=== PATIENT | female | born 1955 | race African-American/Black ===

== ENCOUNTER 2017-08-28 01:37 | Emergency (ER) | payer SELFPAY ==
[~2017-08-28] VITALS: Ht 170.2 cm; Wt 91.0 kg
[2017-08-28 02:25] LABS: BASOPHILS % 0.5 % (0.0-2.0); EOSINOPHILS % 2.8 % (0.0-5.0); HEMATOCRIT. 40.7 % (36.0-48.0); HEMOGLOBIN. 13.4 g/dL (12.0-16.0); LYMPHOCYTES % 23.6 % (20.0-50.0); MEAN CORPUSCULAR HEMOGLOBIN 28.3 pg (28.0-32.0); MEAN CORPUSCULAR VOLUME 85.9 fL (81.0-99.0); MEAN PLATELET VOLUME 8.9 fl (7.4-10.4); MONOCYTES % 8.8 % (2.0-8.0); NEUTROPHILS % 64.3 % (40.0-76.0); PLATELET 165 x1000/uL (130-400); RED BLOOD CELL COUNT 4.74 mill/uL (4.2-5.4); RED CELL DISTRIBUTION WIDTH 14.2 % (11.6-14.6)
[2017-08-28 02:28] LABS: CHLORIDE 106 mEq/L (98-107)
[2017-08-28 02:37] LABS: CARBON DIOXIDE 30 mEq/L (21-32); ETHANOL BLOOD < 10 mg/dL
[2017-08-28] MEDS ORDERED: OLANZAPINE 2.5MG TABLET PO SCH (05:45)
[2017-08-28 07:26] LABS: CLARITY URINE CLEAR (CLEAR); COLOR URINE YELLOW (YELLOW); GLUCOSE URINE NEGATIVE (NEGATIVE); KETONES URINE NEGATIVE (NEGATIVE); LEUKOCYTE ESTERASE URINE TRACE (NEGATIVE); NITRITE URINE NEGATIVE (NEGATIVE); OCCULT BLOOD URINE NEGATIVE (NEGATIVE); PROTEIN URINE NEGATIVE (NEGATIVE); SPECIFIC GRAVITY URINE 1.015 (1.005-1.030); UROBILINOGEN URINE 0.2 E.U./dL (0.2-1.0)
[2017-08-28 07:41] LABS: *AMPHETAMINES SCREEN URINE NEGATIVE (NEGATIVE); *BARBITURATES SCREEN URINE NEGATIVE (NEGATIVE); *BENZODIAZEPINES SCREEN URINE NEGATIVE (NEGATIVE); *COCAINE SCREEN URINE NEGATIVE (NEGATIVE); CANNABINOID URINE SCREEN NEGATIVE (NEGATIVE); METHADONE URINE SCREEN NEGATIVE (NEGATIVE); OPIATES URINE SCREEN NEGATIVE (NEGATIVE); PHENCYCLIDINE URINE SCREEN NEGATIVE (NEGATIVE)
[2017-08-28 16:45] VITALS: BP 152/79
== END 2017-08-28 18:45 | disposition left against medical advice (07) ==
LOC: ER 01:44
DX: T43.621A Poisoning by amphetamines, accidental (unintentional), initial encounter (principal); F23 Brief psychotic disorder; R44.1 Visual hallucinations; I10 Essential (primary) hypertension; R45.851 Suicidal ideations; Y92.018 Other place in single-family (private) house as the place of occurrence of the external cause
CPT/HCPCS: 36415; 70450; 80053; 80305; 80307; 80329; 81001; 82962; 85025; 93005; 99285; G0482; Z7610

== ENCOUNTER 2018-04-15 14:45 | Inpatient (IN) | payer MEDICARE, MEDICAID ==
[~2018-04-15] VITALS: Ht 167.6 cm; Wt 96.2 kg
[~2018-04-15 14:45] MED LIST: ASPI-1159 PO; ATOR-2 PO; HYDR-4134 PO; LEVO25TA7 PO; LOSA50TA20 PO; METF500T6 PO; OLAN2.5T29 PO
[2018-04-15 15:00] VITALS: BP 164/84
[2018-04-15] MEDS ORDERED: MAGNESIUM/ALUMINUM HYDROXIDE/SIMETHICONE 30ML UDC PO PRN (16:00)
[2018-04-15] MEDS ORDERED: ACETAMINOPHEN 650MG SUPP PR PRN (16:00)
[2018-04-15] MEDS ORDERED: DIPHENHYDRAMINE 50MG/ML VIAL IV PRN (16:00)
[2018-04-15] MEDS ORDERED: IPRATROPIUM/ALBUTEROL 0.5-3(2.5)MG/3ML NEB INH PRN (16:00)
[2018-04-15] MEDS ORDERED: HYDROCODONE/ACETAMINOPHEN 5/325MG TABLET PO PRN (16:00)
[2018-04-15] MEDS ORDERED: MEDICATION NOT ON FORMULARY EA (Atorvastatin Calcium 1 TAB) PO SCH (16:00)
[2018-04-15] MEDS ORDERED: MEDICATION NOT ON FORMULARY EA (Aspirin (Aspirin Low Dose) 1 TAB) PO SCH (16:00)
[2018-04-15] MEDS ORDERED: ONDANSETRON HCL 4MG/2ML VIAL IV PRN (16:00)
[2018-04-15] MEDS ORDERED: GUAIFENESIN 200MG/10ML SUGAR FREE UDC PO PRN (16:00)
[2018-04-15] MEDS ORDERED: DOCUSATE SODIUM 100MG CAPSULE PO PRN (16:00)
[2018-04-15] MEDS ORDERED: NA PHOS,M-B/NA PHOS,DI-BA ENEMA 118ML PR PRN (16:00)
[2018-04-15] MEDS ORDERED: DEXTROSE 50% WATER 50ML SYRINGE IV PRN (16:30)
[2018-04-15] MEDS ORDERED: ONDANSETRON HCL 4MG TABLET PO PRN (16:30)
[2018-04-15] MEDS ORDERED: DIPHENHYDRAMINE 12.5MG/5ML UDC PO PRN (16:30)
[2018-04-15] MEDS ORDERED: MEDICATION NOT ON FORMULARY EA (Hydralazine Hcl 1 TAB) PO SCH (17:00)
[2018-04-15] MEDS ORDERED: MEDICATION NOT ON FORMULARY EA (Metformin Hcl 1 TAB) PO SCH (17:00)
[2018-04-15] MEDS: BLOOD SUGAR DIAGNOSTIC STRIP TEST SCH ×2 (17:00→21:00)
[2018-04-15] MEDS ORDERED: LORAZEPAM 2MG/ML CPJ IV PRN (17:15)
[2018-04-15] MEDS: METFORMIN HCL 500MG TABLET PO SCH (17:18)
[2018-04-15] MEDS: CLONIDINE 0.1MG TABLET PO PRN (17:18)
[2018-04-15] MEDS: ALPRAZOLAM 0.5 MG TABLET PO PRN (17:54)
[2018-04-15 20:00] VITALS: BP 137/74
[2018-04-15] MEDS: OLANZAPINE 2.5MG TABLET PO SCH ×2 (21:00→22:32)
[2018-04-15] MEDS ORDERED: MEDICATION NOT ON FORMULARY EA (Olanzapine 1 TAB) PO SCH (21:00)
[2018-04-15] MEDS: INSULIN LISPRO 100 UNITS/ML SUBCUT SCH ×2 (21:00→21:14)
[2018-04-15] MEDS: ATORVASTATIN CALCIUM 40MG TABLET PO SCH ×2 (21:00→22:31)
[2018-04-15] MEDS: HYDRALAZINE HCL 25MG TABLET PO SCH ×2 (22:00→22:33)
[2018-04-15] MEDS: SODIUM CHLORIDE 0.9% INJ 3ML FLUSH IVF SCH (22:00)
[2018-04-15] MEDS: ENOXAPARIN 30MG/0.3ML SYR SUBCUT SCH (22:32)
[2018-04-16 01:00] VITALS: BP 117/70
[2018-04-16 03:10] VITALS: BP 111/66
[2018-04-16] MEDS: SODIUM CHLORIDE 0.9% INJ 3ML FLUSH IVF SCH ×4 (06:00→22:00)
[2018-04-16] MEDS: LEVOTHYROXINE SODIUM 25MCG TABLET PO SCH (06:42)
[2018-04-16] MEDS: INSULIN LISPRO 100 UNITS/ML SUBCUT SCH ×4 (06:43→21:00)
[2018-04-16] MEDS: BLOOD SUGAR DIAGNOSTIC STRIP TEST SCH ×4 (06:43→21:00)
[2018-04-16] MEDS: HYDRALAZINE HCL 25MG TABLET PO SCH ×3 (06:43→22:39)
[2018-04-16 08:00] VITALS: BP 115/59
[2018-04-16] MEDS ORDERED: MEDICATION NOT ON FORMULARY EA (Losartan Potassium 1 TAB) PO SCH (09:00)
[2018-04-16] MEDS ORDERED: MEDICATION NOT ON FORMULARY EA (Levothyroxine Sodium 1 TAB) PO SCH (09:00)
[2018-04-16] MEDS: METFORMIN HCL 500MG TABLET PO SCH ×2 (09:39→18:52)
[2018-04-16] MEDS: ASPIRIN 81MG EC TABLET PO SCH (09:39)
[2018-04-16] MEDS: LOSARTAN POTASSIUM 50 MG TABLET PO SCH (09:39)
[2018-04-16] MEDS: DOCUSATE SODIUM 100MG CAPSULE PO SCH ×2 (09:40→18:52)
[2018-04-16] MEDS: ENOXAPARIN 30MG/0.3ML SYR SUBCUT SCH ×2 (09:41→22:30)
[2018-04-16 20:00] VITALS: BP 150/66
[2018-04-16] MEDS: ATORVASTATIN CALCIUM 40MG TABLET PO SCH (22:39)
[2018-04-16] MEDS: OLANZAPINE 2.5MG TABLET PO SCH (22:39)
[2018-04-17] MEDS: SODIUM CHLORIDE 0.9% INJ 3ML FLUSH IVF SCH ×3 (06:00→22:00)
[2018-04-17] MEDS: BLOOD SUGAR DIAGNOSTIC STRIP TEST SCH ×4 (06:30→21:37)
[2018-04-17] MEDS: LEVOTHYROXINE SODIUM 25MCG TABLET PO SCH (06:40)
[2018-04-17] MEDS: HYDRALAZINE HCL 25MG TABLET PO SCH ×3 (06:40→21:34)
[2018-04-17 08:00] VITALS: BP 158/75
[2018-04-17] MEDS: INSULIN LISPRO 100 UNITS/ML SUBCUT SCH ×4 (09:00→21:00)
[2018-04-17] MEDS: ASPIRIN 81MG EC TABLET PO SCH (09:14)
[2018-04-17] MEDS: METFORMIN HCL 500MG TABLET PO SCH ×2 (09:14→16:50)
[2018-04-17] MEDS: DOCUSATE SODIUM 100MG CAPSULE PO SCH ×2 (09:14→16:50)
[2018-04-17] MEDS: LOSARTAN POTASSIUM 50 MG TABLET PO SCH (09:14)
[2018-04-17] MEDS: ENOXAPARIN 30MG/0.3ML SYR SUBCUT SCH ×2 (09:20→21:34)
[2018-04-17 20:00] VITALS: BP 127/58
[2018-04-17] MEDS: ATORVASTATIN CALCIUM 40MG TABLET PO SCH (21:34)
[2018-04-17] MEDS: OLANZAPINE 2.5MG TABLET PO SCH (21:34)
[2018-04-17] MEDS: ACETAMINOPHEN 325MG TABLET PO PRN (23:55)
[2018-04-17] MEDS: ALPRAZOLAM 0.5 MG TABLET PO PRN (23:55)
[2018-04-18] MEDS: HYDRALAZINE HCL 25MG TABLET PO SCH ×3 (05:35→21:36)
[2018-04-18] MEDS: LEVOTHYROXINE SODIUM 25MCG TABLET PO SCH (05:35)
[2018-04-18] MEDS: BLOOD SUGAR DIAGNOSTIC STRIP TEST SCH ×4 (06:25→21:45)
[2018-04-18] MEDS: SODIUM CHLORIDE 0.9% INJ 3ML FLUSH IVF SCH ×4 (06:25→21:29)
[2018-04-18 08:00] VITALS: BP 168/73
[2018-04-18] MEDS: DOCUSATE SODIUM 100MG CAPSULE PO SCH ×2 (08:46→19:02)
[2018-04-18] MEDS: LOSARTAN POTASSIUM 50 MG TABLET PO SCH (08:46)
[2018-04-18] MEDS: ASPIRIN 81MG EC TABLET PO SCH (08:46)
[2018-04-18] MEDS: METFORMIN HCL 500MG TABLET PO SCH ×2 (08:46→19:02)
[2018-04-18] MEDS: ENOXAPARIN 30MG/0.3ML SYR SUBCUT SCH ×2 (08:47→21:36)
[2018-04-18] MEDS: INSULIN LISPRO 100 UNITS/ML SUBCUT SCH ×4 (09:10→21:45)
[2018-04-18] MEDS: ACETAMINOPHEN 325MG TABLET PO PRN (13:42)
[2018-04-18] MEDS: CLONIDINE 0.1MG TABLET PO PRN (19:58)
[2018-04-18 20:08] VITALS: BP 163/88
[2018-04-18 21:00] VITALS: BP 147/78
[2018-04-18] MEDS: ATORVASTATIN CALCIUM 40MG TABLET PO SCH (21:36)
[2018-04-18] MEDS: OLANZAPINE 2.5MG TABLET PO SCH (21:38)
[2018-04-19] MEDS: HYDRALAZINE HCL 25MG TABLET PO SCH ×3 (05:37→21:30)
[2018-04-19] MEDS: LEVOTHYROXINE SODIUM 25MCG TABLET PO SCH (05:37)
[2018-04-19] MEDS: SODIUM CHLORIDE 0.9% INJ 3ML FLUSH IVF SCH ×3 (05:38→21:22)
[2018-04-19] MEDS: BLOOD SUGAR DIAGNOSTIC STRIP TEST SCH ×4 (05:38→21:22)
[2018-04-19 08:00] VITALS: BP 117/57
[2018-04-19] MEDS: INSULIN LISPRO 100 UNITS/ML SUBCUT SCH ×4 (09:00→21:00)
[2018-04-19] MEDS: LOSARTAN POTASSIUM 50 MG TABLET PO SCH (10:11)
[2018-04-19] MEDS: DOCUSATE SODIUM 100MG CAPSULE PO SCH ×2 (10:11→18:21)
[2018-04-19] MEDS: METFORMIN HCL 500MG TABLET PO SCH ×2 (10:11→18:21)
[2018-04-19] MEDS: ENOXAPARIN 30MG/0.3ML SYR SUBCUT SCH ×2 (10:12→20:30)
[2018-04-19] MEDS: ASPIRIN 81MG EC TABLET PO SCH (10:15)
[2018-04-19] MEDS: ACETAMINOPHEN 650MG/20.3ML UDC GT PRN ×2 (10:21→14:05)
[2018-04-19 20:00] VITALS: BP 169/55
[2018-04-19] MEDS: OLANZAPINE 2.5MG TABLET PO SCH (20:30)
[2018-04-19] MEDS: ATORVASTATIN CALCIUM 40MG TABLET PO SCH (20:30)
[2018-04-19] MEDS: CLONIDINE 0.1MG TABLET PO PRN (20:31)
[2018-04-19] MEDS: ACETAMINOPHEN 325MG TABLET PO PRN (20:31)
[2018-04-19 21:30] VITALS: BP 140/71
[2018-04-20] MEDS: HYDRALAZINE HCL 25MG TABLET PO SCH ×2 (05:41→13:56)
[2018-04-20] MEDS: SODIUM CHLORIDE 0.9% INJ 3ML FLUSH IVF SCH ×3 (05:41→22:00)
[2018-04-20] MEDS: LEVOTHYROXINE SODIUM 25MCG TABLET PO SCH (06:25)
[2018-04-20] MEDS: BLOOD SUGAR DIAGNOSTIC STRIP TEST SCH ×4 (06:25→21:00)
[2018-04-20] MEDS: INSULIN LISPRO 100 UNITS/ML SUBCUT SCH ×4 (06:41→21:00)
[2018-04-20] MEDS: ACETAMINOPHEN 325MG TABLET PO PRN (07:54)
[2018-04-20 07:58] VITALS: BP 146/68
[2018-04-20 08:00] VITALS: BP 144/74
[2018-04-20] MEDS: DOCUSATE SODIUM 100MG CAPSULE PO SCH ×3 (09:51→18:22)
[2018-04-20] MEDS: ENOXAPARIN 30MG/0.3ML SYR SUBCUT SCH ×2 (09:51→21:00)
[2018-04-20] MEDS: ASPIRIN 81MG EC TABLET PO SCH (09:51)
[2018-04-20] MEDS: LOSARTAN POTASSIUM 50 MG TABLET PO SCH (09:52)
[2018-04-20] MEDS: METFORMIN HCL 500MG TABLET PO SCH ×2 (09:52→18:22)
[2018-04-20 20:00] VITALS: BP 140/77
[2018-04-21] MEDS: HYDRALAZINE HCL 25MG TABLET PO SCH ×4 (00:01→22:35)
[2018-04-21] MEDS: OLANZAPINE 2.5MG TABLET PO SCH ×2 (00:02→21:00)
[2018-04-21] MEDS: ATORVASTATIN CALCIUM 40MG TABLET PO SCH ×2 (00:02→21:00)
[2018-04-21 06:37] LABS: BASOPHILS % 0.3 % (0.0-2.0); EOSINOPHILS % 5.9 % (0.0-5.0); HEMATOCRIT. 37.5 % (36.0-48.0); HEMOGLOBIN. 12.4 g/dL (12.0-16.0); LYMPHOCYTES % 48.5 % (20.0-50.0); MEAN CORPUSCULAR HEMOGLOBIN 28.5 pg (28.0-32.0); MEAN CORPUSCULAR VOLUME 86.3 fL (81.0-99.0); MEAN PLATELET VOLUME 9.3 fl (7.4-10.4); MONOCYTES % 10.5 % (2.0-8.0); NEUTROPHILS % 34.8 % (40.0-76.0); PLATELET 162 x1000/uL (130-400); RED BLOOD CELL COUNT 4.35 mill/uL (4.2-5.4); RED CELL DISTRIBUTION WIDTH 14.5 % (11.6-14.6)
[2018-04-21] MEDS: SODIUM CHLORIDE 0.9% INJ 3ML FLUSH IVF SCH ×3 (06:59→22:34)
[2018-04-21] MEDS: BLOOD SUGAR DIAGNOSTIC STRIP TEST SCH ×4 (07:00→21:00)
[2018-04-21] MEDS: LEVOTHYROXINE SODIUM 25MCG TABLET PO SCH (07:01)
[2018-04-21 08:00] VITALS: BP 139/91
[2018-04-21 08:09] LABS: CHLORIDE 112 mEq/L (98-107)
[2018-04-21] MEDS: INSULIN LISPRO 100 UNITS/ML SUBCUT SCH ×4 (09:00→21:00)
[2018-04-21] MEDS: ENOXAPARIN 30MG/0.3ML SYR SUBCUT SCH ×2 (09:14→22:32)
[2018-04-21] MEDS: LOSARTAN POTASSIUM 50 MG TABLET PO SCH (09:15)
[2018-04-21] MEDS: ASPIRIN 81MG EC TABLET PO SCH (09:15)
[2018-04-21] MEDS: DOCUSATE SODIUM 100MG CAPSULE PO SCH ×2 (09:15→17:35)
[2018-04-21] MEDS: METFORMIN HCL 500MG TABLET PO SCH ×2 (09:15→17:35)
[2018-04-21] MEDS: ACETAMINOPHEN 650MG/20.3ML UDC GT PRN (09:53)
[2018-04-21 20:00] VITALS: BP 147/77
[2018-04-22] MEDS: LEVOTHYROXINE SODIUM 25MCG TABLET PO SCH (05:57)
[2018-04-22] MEDS: HYDRALAZINE HCL 25MG TABLET PO SCH ×2 (05:58→14:30)
[2018-04-22] MEDS: SODIUM CHLORIDE 0.9% INJ 3ML FLUSH IVF SCH ×2 (06:55→14:00)
[2018-04-22] MEDS: BLOOD SUGAR DIAGNOSTIC STRIP TEST SCH ×2 (06:55→11:22)
[2018-04-22 08:00] VITALS: BP 177/81
[2018-04-22] MEDS: ASPIRIN 81MG EC TABLET PO SCH (08:25)
[2018-04-22] MEDS: METFORMIN HCL 500MG TABLET PO SCH (08:25)
[2018-04-22] MEDS: DOCUSATE SODIUM 100MG CAPSULE PO SCH (08:25)
[2018-04-22] MEDS: ENOXAPARIN 30MG/0.3ML SYR SUBCUT SCH (08:26)
[2018-04-22] MEDS: LOSARTAN POTASSIUM 50 MG TABLET PO SCH (08:28)
[2018-04-22] MEDS: INSULIN LISPRO 100 UNITS/ML SUBCUT SCH ×2 (09:00→13:00)
[2018-04-22 10:09] VITALS: BP 130/68
[2018-04-22] MEDS: ACETAMINOPHEN 650MG/20.3ML UDC GT PRN (12:39)
== END 2018-04-22 15:10 | disposition home or self-care (01) | DRG 64 ==
PROVIDERS: ADMIT Psychiatry & Neurology Neurology; ATTEND Family Medicine
PROC: 5A09357 Assistance with Respiratory Ventilation, Less than 24 Consecutive Hours, Continuous Positive Airway Pressure (ICD-10-PCS; principal; 2018-04-15)
PROC: 5A09357 Assistance with Respiratory Ventilation, Less than 24 Consecutive Hours, Continuous Positive Airway Pressure (ICD-10-PCS; 2018-04-16)
PROC: 5A09357 Assistance with Respiratory Ventilation, Less than 24 Consecutive Hours, Continuous Positive Airway Pressure (ICD-10-PCS; 2018-04-17)
PROC: 5A09357 Assistance with Respiratory Ventilation, Less than 24 Consecutive Hours, Continuous Positive Airway Pressure (ICD-10-PCS; 2018-04-18)
PROC: 5A09357 Assistance with Respiratory Ventilation, Less than 24 Consecutive Hours, Continuous Positive Airway Pressure (ICD-10-PCS; 2018-04-21)
PROC: 5A09357 Assistance with Respiratory Ventilation, Less than 24 Consecutive Hours, Continuous Positive Airway Pressure (ICD-10-PCS; 2018-04-22)
DX: I63.9 Cerebral infarction, unspecified (principal); G93.40 Encephalopathy, unspecified; E87.0 Hyperosmolality and hypernatremia; G81.94 Hemiplegia, unspecified affecting left nondominant side; I10 Essential (primary) hypertension; G47.30 Sleep apnea, unspecified; R00.1 Bradycardia, unspecified; K59.00 Constipation, unspecified; F41.8 Other specified anxiety disorders; E78.5 Hyperlipidemia, unspecified; E11.9 Type 2 diabetes mellitus without complications; E66.9 Obesity, unspecified; R82.90 Unspecified abnormal findings in urine; E03.9 Hypothyroidism, unspecified; R62.7 Adult failure to thrive; R26.9 Unspecified abnormalities of gait and mobility; R47.1 Dysarthria and anarthria; F32.9 Major depressive disorder, single episode, unspecified; F41.9 Anxiety disorder, unspecified; F22 Delusional disorders; Z68.34 Body mass index [BMI] 34.0-34.9, adult; Z79.82 Long term (current) use of aspirin; Z79.84 Long term (current) use of oral hypoglycemic drugs
CPT/HCPCS: 36415; 80048; 82962; 85025; 92523; 92610; 94660; 97110; 97116; 97162; 97167; 97530; 97535; A6261; G0515; J1650; J1815; J2060

== ENCOUNTER 2019-09-24 17:15 | Emergency (ER) | payer MEDICARE, MEDICAID ==
[~2019-09-24] VITALS: Ht 162.6 cm; Wt 82.0 kg
[~2019-09-24 17:15] MED LIST changes: -ASPI-1159 PO; +ASPI-1393 PO; -LOSA50TA20 PO; +METF-414 PO; -METF500T6 PO
[2019-09-24 17:39] VITALS: BP 169/95
== END 2019-09-24 21:30 | disposition left against medical advice (07) ==
LOC: ER 17:15
DX: Z53.21 Procedure and treatment not carried out due to patient leaving prior to being seen by health care provider (principal)

== ENCOUNTER 2022-06-15 16:20 | Inpatient (IN) | payer MEDICARE, MEDICAID ==
[~2022-06-15] VITALS: Ht 170.2 cm; Wt 83.0 kg
[~2022-06-15 16:20] MED LIST changes: -ASPI-1393 PO; +ASPI-1497 PO
[2022-06-15] MEDS ORDERED: PIPERACILLIN/TAZ 3.375G PREMIX 50 ML IV ONE (16:30)
[2022-06-15] MEDS ORDERED: SODIUM CHLORIDE 0.9% 1000ML BAG (SEPSIS BOLUS) IV ONE (16:30)
[2022-06-15] MEDS ORDERED: VANCOMYCIN 1G PREMIX 200 ML IV ONE (16:30)
[2022-06-15] MEDS ORDERED: ACETAMINOPHEN 650MG SUPP PR ONE (16:45)
[2022-06-15 16:47] LABS: BG BASE EXCESS 0.9 mmol/L (-2.0-2.0); BG CARBOXYHEMOGLOBIN 0.3 % (0.5-1.5); BG HCO3 ACT 23.6 mmol/L (22.0-26.0); BG METHEMOGLOBIN 0.4 % (0.0-1.5); BG OXYHEMOGLOBIN 98.3 % (94.0-97.0); BG PCO2 32.7 mmHg (35.0-45.0); BG PH 7.477 (7.350-7.450); BG PO2 206.6 mmHg (75.0-100.0); BG SAMPLE SITE RIGHT BRACHIAL; BG TOTAL HEMOGLOBIN 15.3 g/dL (12.0-18.0); BG VENT MODE MASK - NRB
[2022-06-15 17:16] LABS: CHLORIDE 136 mEq/L (98-107)
[2022-06-15 17:21] LABS: INR 1.2; PROTHROMBIN TIME 12.8 sec (9.6-11.0)
[2022-06-15 17:37] LABS: CLARITY URINE CLEAR (CLEAR); COLOR URINE YELLOW (YELLOW); KETONES URINE TRACE (NEGATIVE); LEUKOCYTE ESTERASE URINE NEGATIVE (NEGATIVE); NITRITE URINE NEGATIVE (NEGATIVE); OCCULT BLOOD URINE NEGATIVE (NEGATIVE); PH URINE 5.5 (4.5-8.0); PROTEIN URINE 2+ (NEGATIVE)
[2022-06-15 17:48] LABS: BETA HYDROXYBUTYRATE 0.3 mMol/L (0.0-0.3)
[2022-06-15 17:51] LABS: BG BASE EXCESS -2.1 mmol/L (-2.0-2.0); BG DEOXYHEMOGLOBIN 4.8 % (0.0-5.0); BG FRACTION INSPIRED OXYGEN 28; BG HCO3 ACT 21.8 mmol/L (22.0-26.0); BG METHEMOGLOBIN 0.3 % (0.0-1.5); BG OXYGEN SATURATION 95.2 % (92.0-98.5); BG OXYHEMOGLOBIN 94.9 % (94.0-97.0); BG PH 7.413 (7.350-7.450); BG PO2 84.4 mmHg (75.0-100.0); BG SAMPLE SITE LEFT RADIAL; BG TOTAL HEMOGLOBIN 13.3 g/dL (12.0-18.0); BG VENT MODE NASAL CANNULA
[2022-06-15] MEDS ORDERED: ASPIRIN 300MG SUPP PR ONE (18:45)
[2022-06-15 19:00] LABS: BASOPHILS % 0.1 % (0.0-2.0); EOSINOPHILS % 0.1 % (0.0-5.0); HEMATOCRIT. 39.8 % (36.0-48.0); HEMOGLOBIN. 12.7 g/dL (12.0-16.0); LYMPHOCYTES % 7.9 % (20.0-50.0); MEAN CORPUSCULAR HEMOGLOBIN 28.7 pg (28.0-32.0); MEAN CORPUSCULAR VOLUME 89.7 fL (81.0-99.0); MONOCYTES % 6.9 % (2.0-8.0); RED BLOOD CELL COUNT 4.43 mill/uL (4.2-5.4); RED CELL DISTRIBUTION WIDTH 13.7 % (11.6-14.6)
[2022-06-15] MEDS ORDERED: INSULIN REGULAR (HUMULIN R) UD 100 UNITS/ML SYR SUBCUT ONE (19:00)
[2022-06-15] MEDS ORDERED: INSULIN REGULAR (HUMULIN R) 300UNITS/3ML VIAL SUBCUT NR ×2 (20:15→23:45)
[2022-06-15] MEDS ORDERED: ASPIRIN 300MG SUPP PR NR (20:15)
[2022-06-15] MEDS ORDERED: SODIUM CHLORIDE 0.45% 1,000 ML IV SCH (21:45)
[2022-06-15] MEDS ORDERED: INSULIN REGULAR (HUMULIN R) 300UNITS/3ML VIAL IV NR (21:45)
[2022-06-16] MEDS ORDERED: DEXTROSE 50% WATER 50ML SYRINGE IV PRN (00:15)
[2022-06-16] MEDS ORDERED: SODIUM CHL 0.45% + KCL 20MEQ/L 1,000 ML IV SCH (00:15)
[2022-06-16] MEDS: SODIUM CHL 0.45% + KCL 20MEQ/L 1,000 ML IV SCH ×3 (01:00→22:51)
[2022-06-16] MEDS ORDERED: HYDRALAZINE 20MG/ML VIAL IV PRN (01:30)
[2022-06-16] MEDS ORDERED: ACETAMINOPHEN 650MG SUPP PR PRN (01:30)
[2022-06-16 03:24] LABS: BASOPHILS % 0.9 % (0.0-2.0); EOSINOPHILS % 0.1 % (0.0-5.0); HEMATOCRIT. 42.5 % (36.0-48.0); HEMOGLOBIN. 13.4 g/dL (12.0-16.0); LYMPHOCYTES % 11.4 % (20.0-50.0); MEAN CORPUSCULAR HEMOGLOBIN 28.3 pg (28.0-32.0); MEAN CORPUSCULAR VOLUME 89.9 fL (81.0-99.0); MEAN PLATELET VOLUME 11.2 fl (7.4-10.4); MONOCYTES % 5.9 % (2.0-8.0); NEUTROPHILS % 81.7 % (40.0-76.0); RED BLOOD CELL COUNT 4.73 mill/uL (4.2-5.4); RED CELL DISTRIBUTION WIDTH 14.1 % (11.6-14.6)
[2022-06-16 03:31] LABS: CHLORIDE 138 mEq/L (98-107)
[2022-06-16 03:33] LABS: PLATELET 28 x1000/uL (130-400)
[2022-06-16 03:39] LABS: T4 FREE 0.85 ng/dL (0.76-1.46)
[2022-06-16] MEDS: BLOOD SUGAR DIAGNOSTIC STRIP TEST SCH ×5 (06:09→17:30)
[2022-06-16] MEDS: PIPERACILLIN/TAZOBACTAM 3.375 G in DEXTROSE 5% WATER 50 ML IV SCH (06:21)
[2022-06-16] MEDS: INSULIN LISPRO 100 UNITS/ML SUBCUT SCH ×4 (06:28→22:58)
[2022-06-16] MEDS: INSULIN GLARGINE 100 UNITS/ML SUBCUT SCH (08:00)
[2022-06-16] MEDS ORDERED: HYDRALAZINE HCL 25MG TABLET PO SCH (09:00)
[2022-06-16] MEDS ORDERED: LEVOTHYROXINE SODIUM 25MCG TABLET PO SCH (09:00)
[2022-06-16] MEDS ORDERED: ASPIRIN 81MG EC TABLET PO SCH (09:00)
[2022-06-16] MEDS: FAMOTIDINE 20MG/2ML VIAL IV SCH (09:26)
[2022-06-16 09:38] LABS: CHLORIDE 137 mEq/L (98-107)
[2022-06-16 09:43] LABS: CREATINE KINASE 370 IU/L (26-192); CREATINE KINASE MB FRACTION 4.9 ng/mL (0.5-3.6); T4 FREE 0.89 ng/dL (0.76-1.46)
[2022-06-16] MEDS ORDERED: SODIUM CHLORIDE 0.45% 500 ML IV ONE (10:45)
[2022-06-16 15:46] LABS: CHLORIDE 134 mEq/L (98-107)
[2022-06-16 15:58] LABS: CREATINE KINASE 580 IU/L (26-192); CREATINE KINASE MB FRACTION 6.6 ng/mL (0.5-3.6)
[2022-06-16 18:00] VITALS: BP 115/70
[2022-06-16 18:03] VITALS: BP 121/74
[2022-06-16 19:34] LABS: CREATINE KINASE MB FRACTION 6.3 ng/mL (0.5-3.6)
[2022-06-16 20:00] VITALS: BP 117/76
[2022-06-16] MEDS ORDERED: OLANZAPINE 2.5MG TABLET PO SCH (21:00)
[2022-06-16 21:38] LABS: CHLORIDE 140 mEq/L (98-107)
[2022-06-16 22:00] VITALS: BP 134/78
[2022-06-16] MEDS ORDERED: INSULIN GLARGINE 100 UNITS/ML SUBCUT SCH (22:00)
[2022-06-17] VITALS (15 sets, daily range): BP systolic 112–151; BP diastolic 63–77
[2022-06-17 03:02] LABS: CHLORIDE 140 mEq/L (98-107)
[2022-06-17 04:33] LABS: BASOPHILS % 0.2 % (0.0-2.0); EOSINOPHILS % 1.8 % (0.0-5.0); HEMATOCRIT. 38.2 % (36.0-48.0); HEMOGLOBIN. 12.1 g/dL (12.0-16.0); LYMPHOCYTES % 12.6 % (20.0-50.0); MEAN CORPUSCULAR HEMOGLOBIN 28.4 pg (28.0-32.0); MEAN CORPUSCULAR VOLUME 89.7 fL (81.0-99.0); MEAN PLATELET VOLUME 12.2 fl (7.4-10.4); MONOCYTES % 4.6 % (2.0-8.0); NEUTROPHILS % 80.8 % (40.0-76.0); RED BLOOD CELL COUNT 4.26 mill/uL (4.2-5.4); RED CELL DISTRIBUTION WIDTH 14.1 % (11.6-14.6)
[2022-06-17 04:42] LABS: CHLORIDE 139 mEq/L (98-107)
[2022-06-17 05:25] LABS: PLATELET 28 x1000/uL (130-400)
[2022-06-17] MEDS: PIPERACILLIN/TAZOBACTAM 3.375 G in DEXTROSE 5% WATER 50 ML IV SCH ×4 (06:00→21:39)
[2022-06-17] MEDS: SODIUM CHL 0.45% + KCL 20MEQ/L 1,000 ML IV SCH (07:16)
[2022-06-17] MEDS: INSULIN LISPRO 100 UNITS/ML SUBCUT SCH ×4 (08:00→21:42)
[2022-06-17] MEDS: BLOOD SUGAR DIAGNOSTIC STRIP TEST SCH ×3 (09:49→21:39)
[2022-06-17] MEDS: FAMOTIDINE 20MG/2ML VIAL IV SCH (09:59)
[2022-06-17] MEDS: INSULIN GLARGINE 100 UNITS/ML SUBCUT SCH (10:00)
[2022-06-17] MEDS: DEXTROSE 5% WATER 1,000 ML IV SCH ×2 (11:18→21:39)
[2022-06-17 18:23] LABS: CHLORIDE 131 mEq/L (98-107)
[2022-06-18] VITALS (15 sets, daily range): BP systolic 102–140; BP diastolic 57–87
[2022-06-18] MEDS: PIPERACILLIN/TAZOBACTAM 3.375 G in DEXTROSE 5% WATER 50 ML IV SCH ×2 (05:40→14:25)
[2022-06-18 07:19] LABS: BASOPHILS % 0.3 % (0.0-2.0); CHLORIDE 126 mEq/L (98-107); HEMATOCRIT. 38.8 % (36.0-48.0); HEMOGLOBIN. 12.2 g/dL (12.0-16.0); LYMPHOCYTES % 20.6 % (20.0-50.0); MEAN CORPUSCULAR HEMOGLOBIN 28.8 pg (28.0-32.0); MEAN CORPUSCULAR VOLUME 91.3 fL (81.0-99.0); MEAN PLATELET VOLUME 12.8 fl (7.4-10.4); MONOCYTES % 8.2 % (2.0-8.0); NEUTROPHILS % 67.9 % (40.0-76.0); RED BLOOD CELL COUNT 4.25 mill/uL (4.2-5.4); RED CELL DISTRIBUTION WIDTH 13.8 % (11.6-14.6)
[2022-06-18] MEDS: DEXTROSE 5% WATER 1,000 ML IV SCH ×2 (07:19→17:00)
[2022-06-18] MEDS: BLOOD SUGAR DIAGNOSTIC STRIP TEST SCH ×4 (07:20→22:30)
[2022-06-18 07:31] LABS: PHOSPHORUS 3.1 mg/dL (2.5-4.9)
[2022-06-18 08:22] LABS: PLATELET 35 x1000/uL (130-400)
[2022-06-18] MEDS: INSULIN GLARGINE 100 UNITS/ML SUBCUT SCH (10:20)
[2022-06-18] MEDS: INSULIN LISPRO 100 UNITS/ML SUBCUT SCH ×4 (10:21→22:30)
[2022-06-18] MEDS: FAMOTIDINE 20MG/2ML VIAL IV SCH (10:21)
[2022-06-18 14:09] LABS: PLATELET 31 x1000/uL (130-400)
[2022-06-18] MEDS ORDERED: IPRATROPIUM/ALBUTEROL 0.5-3(2.5)MG/3ML NEB HHN PRN (22:45)
[2022-06-19] VITALS (12 sets, daily range): BP systolic 108–128; BP diastolic 54–74
[2022-06-19] MEDS: DEXTROSE 5% WATER 1,000 ML IV SCH ×3 (02:54→23:23)
[2022-06-19 06:22] LABS: BASOPHILS % 0.3 % (0.0-2.0); EOSINOPHILS % 2.9 % (0.0-5.0); HEMATOCRIT. 33.2 % (36.0-48.0); HEMOGLOBIN. 10.9 g/dL (12.0-16.0); LYMPHOCYTES % 23.7 % (20.0-50.0); MEAN CORPUSCULAR HEMOGLOBIN 29.3 pg (28.0-32.0); MEAN CORPUSCULAR VOLUME 88.9 fL (81.0-99.0); MONOCYTES % 7.6 % (2.0-8.0); NEUTROPHILS % 65.5 % (40.0-76.0); RED BLOOD CELL COUNT 3.73 mill/uL (4.2-5.4); RED CELL DISTRIBUTION WIDTH 13.3 % (11.6-14.6)
[2022-06-19 06:36] LABS: CHLORIDE 119 mEq/L (98-107)
[2022-06-19 06:42] LABS: PARTIAL THROMBOPLASTIN TIME 26.7 sec (23.4-31.0)
[2022-06-19 06:49] LABS: PHOSPHORUS 3.2 mg/dL (2.5-4.9)
[2022-06-19] MEDS: BLOOD SUGAR DIAGNOSTIC STRIP TEST SCH ×4 (07:30→21:00)
[2022-06-19 07:41] LABS: PLATELET 45 x1000/uL (130-400)
[2022-06-19 07:44] LABS: PLATELET ESTIMATE MARKEDLY DECREASED
[2022-06-19] MEDS: INSULIN LISPRO 100 UNITS/ML SUBCUT SCH ×7 (08:48→21:19)
[2022-06-19] MEDS: FISH OIL/OMEGA-3 FATTY ACIDS 1000MG CAPSULE PO SCH (08:48)
[2022-06-19] MEDS: FAMOTIDINE 20MG/2ML VIAL IV SCH (08:48)
[2022-06-19] MEDS ORDERED: INSULIN GLARGINE 100 UNITS/ML SUBCUT SCH (10:00)
[2022-06-19] MEDS ORDERED: POTASSIUM CHLORIDE 20MEQ/PACKET PO NR ×2 (12:30→16:00)
[2022-06-19] MEDS: ATORVASTATIN CALCIUM 40MG TABLET PO SCH (21:11)
[2022-06-20] VITALS (12 sets, daily range): BP systolic 107–165; BP diastolic 22–83
[2022-06-20 05:57] LABS: CHLORIDE 116 mEq/L (98-107)
[2022-06-20 06:22] LABS: BASOPHILS % 0.2 % (0.0-2.0); EOSINOPHILS % 2.1 % (0.0-5.0); HEMATOCRIT. 36.5 % (36.0-48.0); HEMOGLOBIN. 11.9 g/dL (12.0-16.0); LYMPHOCYTES % 16.3 % (20.0-50.0); MEAN CORPUSCULAR VOLUME 88.6 fL (81.0-99.0); MEAN PLATELET VOLUME 12.4 fl (7.4-10.4); MONOCYTES % 6.8 % (2.0-8.0); NEUTROPHILS % 74.6 % (40.0-76.0); PLATELET 67 x1000/uL (130-400); RED BLOOD CELL COUNT 4.12 mill/uL (4.2-5.4); RED CELL DISTRIBUTION WIDTH 13.4 % (11.6-14.6)
[2022-06-20] MEDS: BLOOD SUGAR DIAGNOSTIC STRIP TEST SCH ×4 (07:36→21:00)
[2022-06-20] MEDS: INSULIN LISPRO 100 UNITS/ML SUBCUT SCH ×7 (08:19→21:00)
[2022-06-20] MEDS: FISH OIL/OMEGA-3 FATTY ACIDS 1000MG CAPSULE PO SCH (09:58)
[2022-06-20] MEDS: FAMOTIDINE 20MG TABLET PO SCH (09:58)
[2022-06-20] MEDS: AMLODIPINE 5MG TABLET PO SCH (10:37)
[2022-06-20] MEDS: INSULIN GLARGINE 100 UNITS/ML SUBCUT SCH (10:57)
[2022-06-20] MEDS: POTASSIUM CHLORIDE 20MEQ TABLET SR PO SCH (12:45)
[2022-06-20] MEDS ORDERED: POTASSIUM CHLORIDE 20MEQ/PACKET PO SCH (13:15)
[2022-06-20] MEDS: DEXTROSE 5% WATER 1,000 ML IV SCH (14:10)
[2022-06-20] MEDS: ATORVASTATIN CALCIUM 40MG TABLET PO SCH (21:08)
[2022-06-21] VITALS (12 sets, daily range): BP systolic 112–152; BP diastolic 57–87
[2022-06-21] MEDS: DEXTROSE 5% WATER 1,000 ML IV SCH ×2 (02:01→11:56)
[2022-06-21 06:39] LABS: CHLORIDE 114 mEq/L (98-107)
[2022-06-21] MEDS: BLOOD SUGAR DIAGNOSTIC STRIP TEST SCH ×4 (06:51→20:54)
[2022-06-21] MEDS: FISH OIL/OMEGA-3 FATTY ACIDS 1000MG CAPSULE PO SCH (07:43)
[2022-06-21] MEDS: POTASSIUM CHLORIDE 20MEQ TABLET SR PO SCH (07:44)
[2022-06-21] MEDS: FAMOTIDINE 20MG TABLET PO SCH (07:44)
[2022-06-21] MEDS: AMLODIPINE 5MG TABLET PO SCH (07:44)
[2022-06-21] MEDS: INSULIN LISPRO 100 UNITS/ML SUBCUT SCH ×7 (07:45→20:53)
[2022-06-21] MEDS: INSULIN GLARGINE 100 UNITS/ML SUBCUT SCH (09:14)
[2022-06-21 10:23] LABS: BASOPHILS % 0.4 % (0.0-2.0); EOSINOPHILS % 2.1 % (0.0-5.0); HEMATOCRIT. 32.8 % (36.0-48.0); LYMPHOCYTES % 17.6 % (20.0-50.0); MEAN CORPUSCULAR HEMOGLOBIN 29.1 pg (28.0-32.0); MEAN CORPUSCULAR VOLUME 87.3 fL (81.0-99.0); MEAN PLATELET VOLUME 11.5 fl (7.4-10.4); MONOCYTES % 7.2 % (2.0-8.0); NEUTROPHILS % 72.7 % (40.0-76.0); PLATELET 89 x1000/uL (130-400); RED BLOOD CELL COUNT 3.76 mill/uL (4.2-5.4); RED CELL DISTRIBUTION WIDTH 13.1 % (11.6-14.6)
[2022-06-21] MEDS: ATORVASTATIN CALCIUM 40MG TABLET PO SCH (20:53)
[2022-06-22] VITALS (11 sets, daily range): BP systolic 106–163; BP diastolic 46–79
[2022-06-22] MEDS: DEXTROSE 5% WATER 1,000 ML IV SCH (05:08)
[2022-06-22 05:55] LABS: PARTIAL THROMBOPLASTIN TIME 28.3 sec (23.4-31.0); PROTHROMBIN TIME 10.7 sec (9.6-11.0)
[2022-06-22 06:24] LABS: CHLORIDE 113 mEq/L (98-107)
[2022-06-22 06:29] LABS: PHOSPHORUS 3.2 mg/dL (2.5-4.9)
[2022-06-22 06:48] LABS: BASOPHILS % 0.2 % (0.0-2.0); EOSINOPHILS % 1.8 % (0.0-5.0); HEMOGLOBIN. 11.3 g/dL (12.0-16.0); LYMPHOCYTES % 17.2 % (20.0-50.0); MEAN CORPUSCULAR VOLUME 86.9 fL (81.0-99.0); MEAN PLATELET VOLUME 11.2 fl (7.4-10.4); MONOCYTES % 10.2 % (2.0-8.0); NEUTROPHILS % 70.6 % (40.0-76.0); PLATELET 125 x1000/uL (130-400); RED BLOOD CELL COUNT 3.91 mill/uL (4.2-5.4); RED CELL DISTRIBUTION WIDTH 13.4 % (11.6-14.6)
[2022-06-22] MEDS: BLOOD SUGAR DIAGNOSTIC STRIP TEST SCH ×4 (07:30→21:16)
[2022-06-22] MEDS: INSULIN LISPRO 100 UNITS/ML SUBCUT SCH ×7 (07:30→21:00)
[2022-06-22] MEDS: AMLODIPINE 5MG TABLET PO SCH (09:08)
[2022-06-22] MEDS: FISH OIL/OMEGA-3 FATTY ACIDS 1000MG CAPSULE PO SCH (09:08)
[2022-06-22] MEDS: POTASSIUM CHLORIDE 20MEQ TABLET SR PO SCH (09:09)
[2022-06-22] MEDS: FAMOTIDINE 20MG TABLET PO SCH (09:09)
[2022-06-22] MEDS: INSULIN GLARGINE 100 UNITS/ML SUBCUT SCH (10:19)
[2022-06-22] MEDS: APIXABAN 5 MG TABLET PO SCH ×2 (13:07→17:05)
[2022-06-22] MEDS ORDERED: LOSA25TA26 MT (16:32)
[2022-06-22] MEDS ORDERED: AMLO5TAB88 MT (16:32)
[2022-06-22] MEDS: ATORVASTATIN CALCIUM 40MG TABLET PO SCH (21:16)
[2022-06-23] VITALS (11 sets, daily range): BP systolic 96–135; BP diastolic 63–82
[2022-06-23 05:30] LABS: CHLORIDE 112 mEq/L (98-107)
[2022-06-23 05:34] LABS: PHOSPHORUS 3.4 mg/dL (2.5-4.9)
[2022-06-23 06:10] LABS: BASOPHILS % 0.3 % (0.0-2.0); EOSINOPHILS % 0.9 % (0.0-5.0); HEMATOCRIT. 36.7 % (36.0-48.0); LYMPHOCYTES % 14.3 % (20.0-50.0); MEAN CORPUSCULAR HEMOGLOBIN 28.6 pg (28.0-32.0); MEAN CORPUSCULAR VOLUME 87.2 fL (81.0-99.0); MEAN PLATELET VOLUME 10.9 fl (7.4-10.4); MONOCYTES % 8.7 % (2.0-8.0); NEUTROPHILS % 75.8 % (40.0-76.0); PLATELET 183 x1000/uL (130-400); RED BLOOD CELL COUNT 4.21 mill/uL (4.2-5.4); RED CELL DISTRIBUTION WIDTH 13.4 % (11.6-14.6)
[2022-06-23] MEDS: BLOOD SUGAR DIAGNOSTIC STRIP TEST SCH ×3 (07:30→17:13)
[2022-06-23] MEDS: INSULIN LISPRO 100 UNITS/ML SUBCUT SCH ×6 (08:00→17:14)
[2022-06-23] MEDS: FAMOTIDINE 20MG TABLET PO SCH (08:14)
[2022-06-23] MEDS: POTASSIUM CHLORIDE 20MEQ TABLET SR PO SCH (08:14)
[2022-06-23] MEDS: FISH OIL/OMEGA-3 FATTY ACIDS 1000MG CAPSULE PO SCH (08:14)
[2022-06-23] MEDS: APIXABAN 5 MG TABLET PO SCH ×2 (08:14→16:35)
[2022-06-23] MEDS: AMLODIPINE 5MG TABLET PO SCH (08:15)
[2022-06-23] MEDS: INSULIN GLARGINE 100 UNITS/ML SUBCUT SCH (09:29)
[2022-06-23] MEDS ORDERED: INSLIS SUBCUT ×2 (12:08)
[2022-06-23] MEDS ORDERED: LANTUSUD SUBCUT (12:08)
[2022-06-23] MEDS ORDERED: APIX5TAB PO (12:08)
[2022-06-23] MEDS ORDERED: FISH PO (12:08)
[2022-06-23] MEDS ORDERED: LIP40 PO (12:08)
[2022-06-23] MEDS ORDERED: FAMO20TA8 PO (12:08)
[2022-06-23] MEDS ORDERED: POTA-204 PO (12:08)
== END 2022-06-23 17:30 | DRG 637 ==
LOC: ER 16:20 → MICUSO 20:23 → EDBEDREQ 20:29 → EDBEDREQTM 20:29 → EDBEDREQSVC 20:29 → 5EST 06-16 16:49
PROVIDERS: ADMIT Internal Medicine; ATTEND Internal Medicine
PROC: 4A00X4Z Measurement of Central Nervous Electrical Activity, External Approach (ICD-10-PCS; principal; 2022-06-22)
DX: E11.00 Type 2 diabetes mellitus with hyperosmolarity without nonketotic hyperglycemic-hyperosmolar coma (NKHHC) (principal); G93.41 Metabolic encephalopathy; I21.4 Non-ST elevation (NSTEMI) myocardial infarction; E87.0 Hyperosmolality and hypernatremia; N17.9 Acute kidney failure, unspecified; I82.432 Acute embolism and thrombosis of left popliteal vein; I69.354 Hemiplegia and hemiparesis following cerebral infarction affecting left non-dominant side; E44.0 Moderate protein-calorie malnutrition; E03.9 Hypothyroidism, unspecified; Z20.822 Contact with and (suspected) exposure to COVID-19; D69.6 Thrombocytopenia, unspecified; E86.0 Dehydration; I10 Essential (primary) hypertension; E78.1 Pure hyperglyceridemia; E78.5 Hyperlipidemia, unspecified; I44.7 Left bundle-branch block, unspecified; Z68.28 Body mass index [BMI] 28.0-28.9, adult; Z79.4 Long term (current) use of insulin; Z79.82 Long term (current) use of aspirin; Z79.84 Long term (current) use of oral hypoglycemic drugs; Z79.899 Other long term (current) drug therapy; Z82.49 Family history of ischemic heart disease and other diseases of the circulatory system; Z83.3 Family history of diabetes mellitus
CPT/HCPCS: 36415; 36600; 70551; 71045; 78580; 80048; 80053; 80061; 81003; 82010; 82140; 82375; 82550; 82553; 82805; 82962; 83036; 83605; 83615; 83735; 83880; 83930; 83935; 84100; 84145; 84439; 84443; 84484; 85025; 85379; 85384; 86022; 86850; 86900; 87426; 92523; 92610; 93005; 93306; 93970; 95816; 97162; 97167; 99291; C9803; J0360; J1815; J2543; J3370; J3480; J3490; J7030; J7060; J7070; A4315